=== PATIENT | male | born 1975 | race Caucasian/White ===

== ENCOUNTER 2021-08-01 16:49 | Emergency (ER) | payer SELFPAY ==
[2021-08-01] MEDS ORDERED: Sodium Chloride 0.9% 1,000 ML IV SCH (17:00)
[2021-08-01] MEDS ORDERED: HYDROmorphone 1 MG/ML Syringe IVPUSH ONE (17:00)
[2021-08-01] MEDS ORDERED: Sodium Chloride 0.9% 10 ML Syringe FLUSH PRN (17:01)
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
[2021-08-01] MEDS ORDERED: Propofol 200 MG/20 ML SDV IVPUSH ONE (17:31)
--- NOTE | 2021-08-03 10:12 | CR ---
Shoulder 1V Lt, CLINICAL HISTORY: Trauma, pain FINDINGS: There is an anterior dislocation of the glenohumeral joint. No fracture is identified. There is spurring at the AC joint. Shoulder 1V Lt, CLINICAL HISTORY: Post reduction FINDINGS: Previously seen anterior dislocation has been reduced. There is a superior lateral defect in the humeral head. There is is obscured by a EKG lead. Impression: Limited study Status post reduction of anterior dislocation Probable Hill-Sachs deformity superior lateral humeral head
== END 2021-08-01 19:39 | disposition home or self-care (01) ==
LOC: JP.ED 16:49
DX: S43.015A Anterior dislocation of left humerus, initial encounter (principal); I48.91 Unspecified atrial fibrillation; V86.52XA Driver of snowmobile injured in nontraffic accident, initial encounter
CPT/HCPCS: 23650; 36415; 73020; 80048; 84443; 85025; 92960; 93005; 96374; 99285; J1170; J2704; J7030